=== PATIENT | female | born 1960 | race Caucasian/White ===

== ENCOUNTER 2021-06-16 14:08 | Outpatient (CLI) | payer BC ==
[2021-06-18 09:03] LABS: SARS-CoV-2 PCR by NAA DETECTED (NotDetected)
== END 2021-06-16 14:09 | disposition home or self-care (01) ==
LOC: CSHLAB 14:08
PROVIDERS: ATTEND Internal Medicine Critical Care Medicine
DX: U07.1 COVID-19 (principal); R06.00 Dyspnea, unspecified
CPT/HCPCS: U0003; U0005

== ENCOUNTER 2022-06-04 16:39 | Outpatient (CLI) | payer BC | END 2022-06-04 16:40 | disposition home or self-care (01) | LOC: CSHRAD 16:39 | PROVIDERS: ATTEND Family Medicine | DX: R07.81 Pleurodynia (principal) | CPT/HCPCS: 71046 ==

== ENCOUNTER 2022-08-14 04:13 | Emergency (ER) | payer BC | END 2022-08-14 05:51 | disposition home or self-care (01) | LOC: CSHERS 04:13 | DX: T18.2XXA Foreign body in stomach, initial encounter (principal); E11.9 Type 2 diabetes mellitus without complications | CPT/HCPCS: 70360; 71046; 74018 ==

== ENCOUNTER 2023-05-04 08:33 | Outpatient (CLI) | payer BC | END 2023-05-04 08:34 | disposition home or self-care (01) | LOC: CSHMAMMO 08:33 | PROVIDERS: ATTEND Family Medicine | DX: Z12.31 Encounter for screening mammogram for malignant neoplasm of breast (principal) | CPT/HCPCS: 77063; 77067 ==